=== PATIENT | male | born 1950 ===

== ENCOUNTER 2021-12-29 05:23 | Day surgery (SDC) | payer OTHER ==
[~2021-12-29] VITALS: Ht 162.6 cm; Wt 58.1 kg
[2021-12-29] MEDS ORDERED: PERCOCET 5-3251 EACH PO (11:45)
== END 2021-12-29 14:45 | disposition home or self-care (01) ==
LOC: CIR.AMB 05:23
PROVIDERS: ATTEND Surgery
DX: N52.01 Erectile dysfunction due to arterial insufficiency (principal); I10 Essential (primary) hypertension; E78.5 Hyperlipidemia, unspecified; Z87.891 Personal history of nicotine dependence; Z20.822 Contact with and (suspected) exposure to COVID-19
CPT/HCPCS: 54405; C1813